=== PATIENT | female | born 1965 | race Caucasian/White ===

== ENCOUNTER 2019-01-18 13:27 | Emergency (ER) | payer SELFPAY ==
[~2019-01-18] VITALS: Ht 157.5 cm; Wt 77.0 kg
[2019-01-18 13:29] VITALS: BP 145/86
== END 2019-01-18 18:41 | disposition left against medical advice (07) ==
LOC: ER 13:27
DX: H57.12 Ocular pain, left eye (principal); E11.9 Type 2 diabetes mellitus without complications; Z98.890 Other specified postprocedural states; Z53.21 Procedure and treatment not carried out due to patient leaving prior to being seen by health care provider

== ENCOUNTER 2021-08-21 11:03 | Emergency (ER) | payer MEDICAID ==
[~2021-08-21] VITALS: Ht 160 cm; Wt 72.0 kg
[~2021-08-21 11:03] MED LIST: INSU100I28 SQ; METF-414 MT; OMEP20CA14 PO
[2021-08-21 13:14] LABS: CHLORIDE 92 mEq/L (98-107)
[2021-08-21 13:16] LABS: BASOPHILS % 0.2 % (0.0-2.0); EOSINOPHILS % 0.3 % (0.0-5.0); HEMATOCRIT. 40.5 % (36.0-48.0); HEMOGLOBIN. 13.6 g/dL (12.0-16.0); LYMPHOCYTES % 8.1 % (20.0-50.0); MEAN CORPUSCULAR HEMOGLOBIN 29.5 pg (28.0-32.0); MEAN CORPUSCULAR VOLUME 87.9 fL (81.0-99.0); MEAN PLATELET VOLUME 8.3 fl (7.4-10.4); MONOCYTES % 6.3 % (2.0-8.0); NEUTROPHILS % 85.1 % (40.0-76.0); PLATELET 260 x1000/uL (130-400); RED BLOOD CELL COUNT 4.61 mill/uL (4.2-5.4); RED CELL DISTRIBUTION WIDTH 14.1 % (11.6-14.6)
[2021-08-21 13:22] LABS: BETA HYDROXYBUTYRATE 0.1 mMol/L (0.0-0.3)
[2021-08-21] MEDS ORDERED: KETOROLAC 30MG/ML VIAL IV NR (13:27)
[2021-08-21] MEDS ORDERED: BACITRACIN ZINC OINT UDPKT TOP NR ×2 (13:30)
[2021-08-21] MEDS ORDERED: LIDOCAINE HCL/PF 1% 10 MG/ML 5ML VIAL INFIL NR (13:30)
[2021-08-21 13:58] VITALS: BP 156/88
[2021-08-21] MEDS ORDERED: KETOROLAC 30MG/ML VIAL IM NR (14:00)
[2021-08-21 14:37] LABS: CLARITY URINE CLOUDY (CLEAR); COLOR URINE YELLOW (YELLOW); KETONES URINE NEGATIVE (NEGATIVE); LEUKOCYTE ESTERASE URINE NEGATIVE (NEGATIVE); NITRITE URINE NEGATIVE (NEGATIVE); OCCULT BLOOD URINE 1+ (NEGATIVE); PH URINE 6.5 (4.5-8.0); PROTEIN URINE 2+ (NEGATIVE); SPECIFIC GRAVITY URINE 1.038 (1.005-1.030)
[2021-08-21] MEDS ORDERED: CLIN-194 PO (16:26)
[2021-08-21] MEDS ORDERED: GLIP5TAB12 PO (16:26)
[2021-08-21] MEDS ORDERED: METF-414 PO (16:26)
[2021-08-21] MEDS ORDERED: CLOT21CR4 VG (16:27)
[2021-08-21] MEDS ORDERED: T3 PO (16:27)
[2021-08-21] MEDS ORDERED: IBUP-2029 PO (16:27)
== END 2021-08-21 16:19 | disposition home or self-care (01) ==
LOC: ER 11:03
DX: E11.9 Type 2 diabetes mellitus without complications (principal); L02.612 Cutaneous abscess of left foot; B37.3 Candidiasis of vulva and vagina; Z79.4 Long term (current) use of insulin; Z91.14 Patient's other noncompliance with medication regimen; Z98.890 Other specified postprocedural states
CPT/HCPCS: 36415; 73630; 80053; 81003; 82010; 82962; 83605; 85025; 96372; 99284; J1885; J3490

== ENCOUNTER 2021-08-25 11:39 | Inpatient (IN) | payer MEDICAID ==
[~2021-08-25] VITALS: Ht 160 cm; Wt 90.7 kg
[~2021-08-25 11:39] MED LIST changes: +CLIN-194 PO; +CLOT21CR4 VG; +GLIP5TAB12 PO; +IBUP-2029 PO; +METF-414 PO; +T3 PO
[2021-08-25] MEDS ORDERED: HYDROCODONE/ACETAMINOPHEN 5/325MG TABLET PO STA (14:56)
[2021-08-25 16:23] LABS: BASOPHILS % 0.4 % (0.0-2.0); EOSINOPHILS % 0.5 % (0.0-5.0); HEMATOCRIT. 38.2 % (36.0-48.0); HEMOGLOBIN. 12.4 g/dL (12.0-16.0); LYMPHOCYTES % 9.1 % (20.0-50.0); MEAN CORPUSCULAR HEMOGLOBIN 29.1 pg (28.0-32.0); MEAN CORPUSCULAR VOLUME 89.4 fL (81.0-99.0); MONOCYTES % 4.5 % (2.0-8.0); NEUTROPHILS % 85.5 % (40.0-76.0); PLATELET 280 x1000/uL (130-400); RED BLOOD CELL COUNT 4.27 mill/uL (4.2-5.4); RED CELL DISTRIBUTION WIDTH 14.2 % (11.6-14.6)
[2021-08-25 16:30] LABS: CHLORIDE 97 mEq/L (98-107)
[2021-08-25] MEDS ORDERED: PIPERACILLIN/TAZ 3.375G PREMIX 50 ML IV ONE (16:30)
[2021-08-25] MEDS ORDERED: VANCOMYCIN 1G PREMIX 200 ML IV ONE (16:30)
[2021-08-26] VITALS (7 sets, daily range): BP systolic 109–171; BP diastolic 48–75
[2021-08-26] MEDS ORDERED: DEXTROSE 50% WATER 50ML SYRINGE IV PRN
[2021-08-26] MEDS: SODIUM CHLORIDE 0.9% 1,000 ML IV SCH ×2 (00:23→13:54)
[2021-08-26] MEDS ORDERED: *PATIENT'S OWN MEDICATION STORAGE XX SCH (01:15)
[2021-08-26] MEDS ORDERED: CLONIDINE 0.1MG TABLET PO PRN (02:00)
[2021-08-26] MEDS ORDERED: NALOXONE HCL 0.4MG/ML VIAL IV PRN (02:00)
[2021-08-26] MEDS: CLONIDINE 0.1MG TABLET PO PRN (02:29)
[2021-08-26] MEDS ORDERED: VANCOMYCIN 1G PREMIX 200 ML IV SCH ×2 (05:00→21:00)
[2021-08-26] MEDS: MORPHINE SULFATE 2 MG/ML CPJ (NOT FOR IM USE) IV PRN ×3 (05:41→17:53)
[2021-08-26] MEDS: PIPERACILLIN/TAZOBACTAM 3.375 G in DEXTROSE 5% WATER 50 ML IV SCH ×3 (06:00→22:38)
[2021-08-26 07:26] LABS: BASOPHILS % 0.7 % (0.0-2.0); EOSINOPHILS % 0.6 % (0.0-5.0); HEMOGLOBIN. 11.1 g/dL (12.0-16.0); LYMPHOCYTES % 11.4 % (20.0-50.0); MEAN CORPUSCULAR HEMOGLOBIN 29.3 pg (28.0-32.0); MEAN CORPUSCULAR VOLUME 87.4 fL (81.0-99.0); MEAN PLATELET VOLUME 8.7 fl (7.4-10.4); MONOCYTES % 8.1 % (2.0-8.0); NEUTROPHILS % 79.2 % (40.0-76.0); PLATELET 241 x1000/uL (130-400); RED BLOOD CELL COUNT 3.78 mill/uL (4.2-5.4)
[2021-08-26] MEDS: INSULIN LISPRO 100 UNITS/ML SUBCUT SCH ×4 (07:33→20:48)
[2021-08-26] MEDS: BLOOD SUGAR DIAGNOSTIC STRIP TEST SCH ×4 (07:33→20:36)
[2021-08-26 07:36] LABS: CHLORIDE 99 mEq/L (98-107)
[2021-08-26 07:44] LABS: HDL CHOLESTEROL 34 mg/dL (40-59); LDL CHOLESTEROL 29 mg/dL (5-100)
[2021-08-26] MEDS: PANTOPRAZOLE SODIUM 40 MG/VIAL IV SCH (09:37)
[2021-08-26] MEDS: ENOXAPARIN 40MG/0.4ML SYR SUBCUT SCH (09:38)
[2021-08-26 14:34] LABS: CLARITY URINE CLEAR (CLEAR); COLOR URINE YELLOW (YELLOW); KETONES URINE NEGATIVE (NEGATIVE); LEUKOCYTE ESTERASE URINE NEGATIVE (NEGATIVE); NITRITE URINE NEGATIVE (NEGATIVE); OCCULT BLOOD URINE 2+ (NEGATIVE); PH URINE 6.5 (4.5-8.0); PROTEIN URINE 1+ (NEGATIVE); SPECIFIC GRAVITY URINE 1.018 (1.005-1.030)
[2021-08-26] MEDS: SODIUM HYPOCHLORITE 0.125% 473ML SOLUTION TOP SCH (17:49)
[2021-08-26] MEDS: VANCOMYCIN 1GM PMX (XELLIA) 200 ML IV SCH (20:30)
[2021-08-27] VITALS: BP 143/72
[2021-08-27] MEDS: SODIUM CHLORIDE 0.9% 1,000 ML IV SCH ×2 (03:05→16:00)
[2021-08-27 04:00] VITALS: BP 143/72
[2021-08-27] MEDS: PIPERACILLIN/TAZOBACTAM 3.375 G in DEXTROSE 5% WATER 50 ML IV SCH ×3 (06:09→22:48)
[2021-08-27 07:02] LABS: CHLORIDE 97 mEq/L (98-107)
[2021-08-27] MEDS: BLOOD SUGAR DIAGNOSTIC STRIP TEST SCH ×4 (07:20→21:35)
[2021-08-27 08:00] VITALS: BP 126/66
[2021-08-27] MEDS: PANTOPRAZOLE SODIUM 40 MG/VIAL IV SCH (08:43)
[2021-08-27] MEDS: ENOXAPARIN 40MG/0.4ML SYR SUBCUT SCH (08:43)
[2021-08-27] MEDS: MORPHINE SULFATE 2 MG/ML CPJ (NOT FOR IM USE) IV PRN (08:45)
[2021-08-27] MEDS: INSULIN LISPRO 100 UNITS/ML SUBCUT SCH ×4 (08:58→21:47)
[2021-08-27] MEDS: VANCOMYCIN 1GM PMX (XELLIA) 200 ML IV SCH (08:59)
[2021-08-27] MEDS: SODIUM HYPOCHLORITE 0.125% 473ML SOLUTION TOP SCH (09:00)
[2021-08-27 12:00] VITALS: BP 140/69
[2021-08-27 16:00] VITALS: BP 139/70
[2021-08-27 20:00] VITALS: BP 143/65
[2021-08-27 20:54] LABS: BASOPHILS % 0.4 % (0.0-2.0); EOSINOPHILS % 1.2 % (0.0-5.0); HEMATOCRIT. 32.6 % (36.0-48.0); HEMOGLOBIN. 10.9 g/dL (12.0-16.0); LYMPHOCYTES % 13.9 % (20.0-50.0); MEAN CORPUSCULAR HEMOGLOBIN 29.3 pg (28.0-32.0); MEAN CORPUSCULAR VOLUME 87.3 fL (81.0-99.0); MONOCYTES % 10.5 % (2.0-8.0); PLATELET 264 x1000/uL (130-400); RED BLOOD CELL COUNT 3.73 mill/uL (4.2-5.4); RED CELL DISTRIBUTION WIDTH 13.6 % (11.6-14.6)
[2021-08-27] MEDS: VANCOMYCIN 750MG PREMIX 150 ML IV SCH (21:48)
[2021-08-28] VITALS: BP 142/72
[2021-08-28] MEDS: MORPHINE SULFATE 2 MG/ML CPJ (NOT FOR IM USE) IV PRN ×2 (00:14→21:52)
[2021-08-28 04:00] VITALS: BP 159/76
[2021-08-28] MEDS: VANCOMYCIN 750MG PREMIX 150 ML IV SCH ×2 (05:23→13:57)
[2021-08-28] MEDS: SODIUM CHLORIDE 0.9% 1,000 ML IV SCH ×2 (05:23→19:03)
[2021-08-28] MEDS: INSULIN LISPRO 100 UNITS/ML SUBCUT SCH ×4 (06:40→21:34)
[2021-08-28] MEDS: BLOOD SUGAR DIAGNOSTIC STRIP TEST SCH ×4 (07:20→21:26)
[2021-08-28 08:00] VITALS: BP 157/81
[2021-08-28 08:12] LABS: BASOPHILS % 0.8 % (0.0-2.0); EOSINOPHILS % 1.3 % (0.0-5.0); HEMATOCRIT. 32.3 % (36.0-48.0); HEMOGLOBIN. 11.3 g/dL (12.0-16.0); LYMPHOCYTES % 14.9 % (20.0-50.0); MEAN CORPUSCULAR HEMOGLOBIN 29.9 pg (28.0-32.0); MEAN CORPUSCULAR VOLUME 85.9 fL (81.0-99.0); MEAN PLATELET VOLUME 8.5 fl (7.4-10.4); MONOCYTES % 10.9 % (2.0-8.0); NEUTROPHILS % 72.1 % (40.0-76.0); PLATELET 285 x1000/uL (130-400); RED BLOOD CELL COUNT 3.77 mill/uL (4.2-5.4); RED CELL DISTRIBUTION WIDTH 13.7 % (11.6-14.6)
[2021-08-28 08:16] LABS: CHLORIDE 94 mEq/L (98-107)
[2021-08-28] MEDS: PANTOPRAZOLE SODIUM 40 MG/VIAL IV SCH (10:56)
[2021-08-28] MEDS: ENOXAPARIN 40MG/0.4ML SYR SUBCUT SCH (10:56)
[2021-08-28 12:00] VITALS: BP 166/78
[2021-08-28] MEDS: SODIUM HYPOCHLORITE 0.125% 473ML SOLUTION TOP SCH (13:12)
[2021-08-28 16:00] VITALS: BP 158/78
[2021-08-28 20:00] VITALS: BP 139/63
[2021-08-28] MEDS: PIPERACILLIN/TAZOBACTAM 3.375 G in DEXTROSE 5% WATER 50 ML IV SCH (21:40)
[2021-08-29] VITALS (7 sets, daily range): BP systolic 107–163; BP diastolic 62–82
[2021-08-29] MEDS: VANCOMYCIN 750MG PREMIX 150 ML IV SCH ×3 (01:16→20:49)
[2021-08-29] MEDS: PIPERACILLIN/TAZOBACTAM 3.375 G in DEXTROSE 5% WATER 50 ML IV SCH ×3 (05:24→22:34)
[2021-08-29 06:12] LABS: CHLORIDE 92 mEq/L (98-107)
[2021-08-29 06:14] LABS: BASOPHILS % 0.6 % (0.0-2.0); EOSINOPHILS % 1.5 % (0.0-5.0); HEMATOCRIT. 33.5 % (36.0-48.0); HEMOGLOBIN. 11.5 g/dL (12.0-16.0); LYMPHOCYTES % 16.4 % (20.0-50.0); MEAN CORPUSCULAR HEMOGLOBIN 29.4 pg (28.0-32.0); MEAN CORPUSCULAR VOLUME 85.9 fL (81.0-99.0); MEAN PLATELET VOLUME 8.7 fl (7.4-10.4); MONOCYTES % 9.8 % (2.0-8.0); NEUTROPHILS % 71.7 % (40.0-76.0); PLATELET 296 x1000/uL (130-400); RED CELL DISTRIBUTION WIDTH 13.4 % (11.6-14.6)
[2021-08-29] MEDS: BLOOD SUGAR DIAGNOSTIC STRIP TEST SCH ×4 (06:18→21:00)
[2021-08-29] MEDS: SODIUM CHLORIDE 0.9% 1,000 ML IV SCH ×2 (08:58→21:03)
[2021-08-29] MEDS: ENOXAPARIN 40MG/0.4ML SYR SUBCUT SCH (08:59)
[2021-08-29] MEDS: PANTOPRAZOLE SODIUM 40 MG/VIAL IV SCH (08:59)
[2021-08-29] MEDS: SODIUM HYPOCHLORITE 0.125% 473ML SOLUTION TOP SCH (09:00)
[2021-08-29] MEDS: INSULIN LISPRO 100 UNITS/ML SUBCUT SCH ×4 (09:34→21:00)
[2021-08-29] MEDS: CLONIDINE 0.1MG TABLET PO PRN (20:49)
[2021-08-29] MEDS: MORPHINE SULFATE 2 MG/ML CPJ (NOT FOR IM USE) IV PRN (21:02)
[2021-08-30] VITALS (7 sets, daily range): BP systolic 108–145; BP diastolic 58–82
[2021-08-30] MEDS: PIPERACILLIN/TAZOBACTAM 3.375 G in DEXTROSE 5% WATER 50 ML IV SCH ×3 (05:12→22:44)
[2021-08-30] MEDS: BLOOD SUGAR DIAGNOSTIC STRIP TEST SCH ×4 (06:44→21:00)
[2021-08-30 08:10] LABS: BASOPHILS % 0.6 % (0.0-2.0); EOSINOPHILS % 1.3 % (0.0-5.0); HEMATOCRIT. 35.4 % (36.0-48.0); HEMOGLOBIN. 12.2 g/dL (12.0-16.0); LYMPHOCYTES % 16.1 % (20.0-50.0); MEAN CORPUSCULAR HEMOGLOBIN 29.8 pg (28.0-32.0); MEAN CORPUSCULAR VOLUME 86.4 fL (81.0-99.0); MONOCYTES % 9.1 % (2.0-8.0); NEUTROPHILS % 72.9 % (40.0-76.0); PLATELET 280 x1000/uL (130-400); RED CELL DISTRIBUTION WIDTH 13.6 % (11.6-14.6)
[2021-08-30] MEDS: FAMOTIDINE 20MG/2ML VIAL IV SCH ×2 (08:34→20:56)
[2021-08-30] MEDS: ENOXAPARIN 30MG/0.3ML SYR SUBCUT SCH ×2 (08:34→20:56)
[2021-08-30] MEDS: INSULIN LISPRO 100 UNITS/ML SUBCUT SCH ×4 (09:09→22:43)
[2021-08-30 09:16] LABS: CHLORIDE 95 mEq/L (98-107)
[2021-08-30] MEDS: VANCOMYCIN 750MG PREMIX 150 ML IV SCH ×2 (09:55→20:56)
[2021-08-30] MEDS: SODIUM HYPOCHLORITE 0.125% 473ML SOLUTION TOP SCH (09:55)
[2021-08-30] MEDS ORDERED: LINE600T11 MT (13:44)
[2021-08-30] MEDS: MORPHINE SULFATE 2 MG/ML CPJ (NOT FOR IM USE) IV PRN (14:58)
[2021-08-30] MEDS: HYDROCODONE/ACETAMINOPHEN 5/325MG TABLET PO PRN (21:13)
[2021-08-31] VITALS: BP 111/59
[2021-08-31 04:00] VITALS: BP 144/60
[2021-08-31] MEDS: PIPERACILLIN/TAZOBACTAM 3.375 G in DEXTROSE 5% WATER 50 ML IV SCH ×3 (05:55→21:46)
[2021-08-31] MEDS: HYDROCODONE/ACETAMINOPHEN 5/325MG TABLET PO PRN ×2 (06:00→22:12)
[2021-08-31] MEDS: BLOOD SUGAR DIAGNOSTIC STRIP TEST SCH ×4 (06:45→21:45)
[2021-08-31 08:00] VITALS: BP 138/53
[2021-08-31] MEDS: ENOXAPARIN 30MG/0.3ML SYR SUBCUT SCH ×2 (09:38→21:45)
[2021-08-31] MEDS: SODIUM HYPOCHLORITE 0.125% 473ML SOLUTION TOP SCH (09:38)
[2021-08-31] MEDS: VANCOMYCIN 750MG PREMIX 150 ML IV SCH (09:45)
[2021-08-31] MEDS: FAMOTIDINE 20MG/2ML VIAL IV SCH (09:45)
[2021-08-31] MEDS: INSULIN LISPRO 100 UNITS/ML SUBCUT SCH ×4 (09:53→22:14)
[2021-08-31 12:00] VITALS: BP 130/62
[2021-08-31 16:00] VITALS: BP 113/66
[2021-08-31 20:00] VITALS: BP 158/85
[2021-08-31] MEDS: FAMOTIDINE 20MG TABLET PO SCH (21:43)
[2021-08-31] MEDS: VANCOMYCIN 1GM PMX (XELLIA) 200 ML IV SCH (21:43)
[2021-09-01] VITALS (7 sets, daily range): BP systolic 91–145; BP diastolic 46–76
[2021-09-01] MEDS: PIPERACILLIN/TAZOBACTAM 3.375 G in DEXTROSE 5% WATER 50 ML IV SCH ×3 (05:42→22:28)
[2021-09-01] MEDS: BLOOD SUGAR DIAGNOSTIC STRIP TEST SCH ×4 (06:31→21:37)
[2021-09-01] MEDS: ENOXAPARIN 30MG/0.3ML SYR SUBCUT SCH ×2 (09:19→21:36)
[2021-09-01] MEDS: SODIUM HYPOCHLORITE 0.125% 473ML SOLUTION TOP SCH (09:20)
[2021-09-01] MEDS: FAMOTIDINE 20MG TABLET PO SCH ×2 (09:20→21:37)
[2021-09-01] MEDS: INSULIN LISPRO 100 UNITS/ML SUBCUT SCH ×4 (09:27→21:58)
[2021-09-01] MEDS: VANCOMYCIN 1GM PMX (XELLIA) 200 ML IV SCH ×2 (10:20→21:37)
[2021-09-01] MEDS: HYDROCODONE/ACETAMINOPHEN 5/325MG TABLET PO PRN (14:35)
[2021-09-02] VITALS (7 sets, daily range): BP systolic 131–152; BP diastolic 51–76
[2021-09-02] MEDS: HYDROCODONE/ACETAMINOPHEN 5/325MG TABLET PO PRN ×2 (05:01→17:53)
[2021-09-02] MEDS: BLOOD SUGAR DIAGNOSTIC STRIP TEST SCH ×3 (06:58→17:02)
[2021-09-02 08:09] LABS: CHLORIDE 95 mEq/L (98-107)
[2021-09-02] MEDS: INSULIN LISPRO 100 UNITS/ML SUBCUT SCH ×3 (08:21→17:49)
[2021-09-02] MEDS: VANCOMYCIN 1GM PMX (XELLIA) 200 ML IV SCH (08:21)
[2021-09-02] MEDS: FAMOTIDINE 20MG TABLET PO SCH (08:22)
[2021-09-02] MEDS: ENOXAPARIN 30MG/0.3ML SYR SUBCUT SCH (08:23)
[2021-09-02] MEDS: SODIUM HYPOCHLORITE 0.125% 473ML SOLUTION TOP SCH (08:23)
[2021-09-02] MEDS ORDERED: NALOXONE HCL 0.4MG/ML VIAL IV PRN (15:00)
== END 2021-09-02 18:55 | disposition home health service (06) | DRG 720 ==
LOC: ER 13:59 → 6EST 16:16 → ENRESERV 19:37 → 6EST 21:59
PROVIDERS: ADMIT Internal Medicine; ATTEND Internal Medicine
PROC: 0H9NXZZ Drainage of Left Foot Skin, External Approach (ICD-10-PCS; principal; 2021-09-01)
DX: A41.9 Sepsis, unspecified organism (principal); E11.621 Type 2 diabetes mellitus with foot ulcer; E44.1 Mild protein-calorie malnutrition; E87.1 Hypo-osmolality and hyponatremia; L03.116 Cellulitis of left lower limb; L97.529 Non-pressure chronic ulcer of other part of left foot with unspecified severity; L02.612 Cutaneous abscess of left foot; E11.65 Type 2 diabetes mellitus with hyperglycemia; I10 Essential (primary) hypertension; E78.5 Hyperlipidemia, unspecified; E86.1 Hypovolemia; B95.4 Other streptococcus as the cause of diseases classified elsewhere; Z20.822 Contact with and (suspected) exposure to COVID-19; Z68.35 Body mass index [BMI] 35.0-35.9, adult
CPT/HCPCS: 36415; 73718; 76881; 80048; 80053; 80061; 80202; 81003; 82962; 83036; 84145; 85025; 85651; 86140; 87070; 87426; 97022; 97161; 97162; 99285; C9113; C9803; J1650; J1815; J2270; J2543; J3370; J3490; J7030; J7060

== ENCOUNTER 2022-07-03 18:38 | Emergency (ER) | payer MEDICAID ==
[~2022-07-03] VITALS: Ht 152.4 cm; Wt 73.0 kg
[~2022-07-03 18:38] MED LIST changes: -CLIN-194 PO; -CLOT21CR4 VG; +LINE600T11 MT
[2022-07-03 18:39] VITALS: BP 140/88
[2022-07-03 19:21] LABS: BASOPHILS % 0.3 % (0.0-2.0); EOSINOPHILS % 1.5 % (0.0-5.0); HEMATOCRIT. 37.9 % (36.0-48.0); HEMOGLOBIN. 12.7 g/dL (12.0-16.0); LYMPHOCYTES % 20.6 % (20.0-50.0); MEAN CORPUSCULAR HEMOGLOBIN 30.5 pg (28.0-32.0); MEAN CORPUSCULAR VOLUME 91.1 fL (81.0-99.0); MEAN PLATELET VOLUME 8.7 fl (7.4-10.4); NEUTROPHILS % 68.6 % (40.0-76.0); PLATELET 209 x1000/uL (130-400); RED BLOOD CELL COUNT 4.16 mill/uL (4.2-5.4); RED CELL DISTRIBUTION WIDTH 13.8 % (11.6-14.6)
[2022-07-03 19:23] LABS: CHLORIDE 101 mEq/L (98-107)
[2022-07-03 19:24] LABS: INR 1.1; PROTHROMBIN TIME 11.5 sec (9.6-11.0)
[2022-07-03 19:30] LABS: BETA HYDROXYBUTYRATE 0.2 mMol/L (0.0-0.3)
== END 2022-07-03 22:39 | disposition left against medical advice (07) ==
LOC: ER 18:38
DX: M79.673 Pain in unspecified foot (principal); Z53.21 Procedure and treatment not carried out due to patient leaving prior to being seen by health care provider
CPT/HCPCS: 36415; 73630; 80053; 82010; 83930; 85025; 99281

== ENCOUNTER 2023-04-13 11:26 | Emergency (ER) | payer MEDICAID, OTHER ==
[~2023-04-13] VITALS: Ht 160 cm; Wt 70.0 kg
[~2023-04-13 11:26] MED LIST changes: -GLIP5TAB12 PO; +GLIP5TAB22 PO
[2023-04-13 11:29] VITALS: O2SAT 98
[2023-04-13 11:55] VITALS: BP 111/61; PULSE 70; RESP 18; TEMP 98.1
[2023-04-13] MEDS: ACETAMINOPHEN 325MG TABLET PO ONE (12:01)
[2023-04-13] MEDS ORDERED: TOPUD PO (13:27)
== END 2023-04-13 14:16 | disposition home or self-care (01) ==
LOC: ER 11:26
DX: S09.90XA Unspecified injury of head, initial encounter (principal); E11.9 Type 2 diabetes mellitus without complications; I10 Essential (primary) hypertension; W18.39XA Other fall on same level, initial encounter; Y93.89 Activity, other specified; Y92.89 Other specified places as the place of occurrence of the external cause; Y99.8 Other external cause status
CPT/HCPCS: 99284